=== PATIENT | female | born 1985 | race African-American/Black ===

== ENCOUNTER 2017-01-22 11:38 | Emergency (ER) | payer OTHER ==
[2017-01-22 12:02] LABS: BASOPHIL% 0.3 % (0-2.5); EOSINOPHIL# 0.1 X10e3 (0-0.7); EOSINOPHIL% 1.8 % (0.0-7.0); HEMATOCRIT 42.2 % (35.0-45.0); HEMOGLOBIN 13.6 gm/dL (12.0-16.0); LYMPHOCYTE# 2.3 X10e3 (1.0-3.5); LYMPHOCYTE% 52.3 % (17.0-45.0); MEAN CELL VOLUME 80.6 FL (83-96); MEAN CORPUSCULAR HEMOGLOBIN 25.9 PG (28-34); MEAN CORPUSCULAR HGB CONC 32.2 g/dL (30-36); MEAN PLATELET VOLUME 10.7 FL (6.5-11.5); MONOCYTE# 0.4 X10e3 (0-1.0); MONOCYTE% 8.3 % (3.0-12.0); NEUTROPHIL# 1.7 X10e3 (1.5-7.1); NEUTROPHIL% 37.3 % (40-75); PLATELET COUNT 137 X10e3 (140-420); RED BLOOD COUNT 5.24 X10e (3.90-5.30); RED CELL DISTRIBUTION WIDTH 14.2 % (11.0-15.5); WHITE BLOOD COUNT 4.5 X10e3 (4.0-10.5)
[2017-01-22 12:22] LABS: ALBUMIN SERUM 4.2 g/dL (3.5-5.0); BILIRUBIN, DIRECT 0.2 mg/dL (0.0-0.2); BILIRUBIN,INDIRECT 0.5 mg/dL (0.0-0.9); BILIRUBIN,TOTAL 0.7 mg/dL (0.2-2.0); BUN/CREATININE RATIO 22.5; CALCIUM SERUM 9.4 mg/dL (8.4-10.2); CREATININE SERUM 0.4 mg/dL (0.6-1.4); GLOM FILT RATE Estimated 159.8 mL/min (>60); POTASSIUM 3.2 mmol/L (3.5-5.1); PROTEIN TOTAL SERUM 7.2 g/dL (6.0-8.3)
[2017-01-22 12:26] LABS: DIFF IND YES
[2017-01-22 12:29] LABS: ANISOCYTOSIS SL; PLATELET ESTIMATE NORMAL (NORMAL)
[2017-01-22 12:56] LABS: URINE SOURCE CLEAN CATCH
[2017-01-22 13:03] LABS: URINE APPEARANCE CLEAR; URINE BILIRUBIN NEG (NEG); URINE BLOOD NEG (NEG); URINE COLOR YELLOW; URINE GLUCOSE NEG (NEG); URINE KETONE TRACE (NEG); URINE LEUKOCYTE ESTERASE TRACE (NEG); URINE NITRATE NEG (NEG); URINE PH 6.5 (5-8); URINE PROTEIN NEG (NEG); URINE SPECIFIC GRAVITY 1.009 (1.003-1.035)
[2017-01-22 13:05] LABS: CULTURE INDICATED? NO; U HYALINE CASTS AUWI 0-2 /[LPF]; URBCS1 AUWI 0-2 /[HPF] (0-2); URINE BACTERIA AUWI NEG (NEGATIVE); URINE SQUAMOUS EPITHELIAL CELL OCC /[HPF]; UWBCS1 AUWI 0-2 (0-5)
== END 2017-01-22 13:42 | disposition home or self-care (01) ==
LOC: CED 11:38
PROVIDERS: Emergency Medicine
DX: K29.70 Gastritis, unspecified, without bleeding (principal); B96.81 Helicobacter pylori [H. pylori] as the cause of diseases classified elsewhere
CPT/HCPCS: 36415; 80048; 80076; 81003; 83690; 84703; 85025; 86677; 96361; 96374; 96375; 99284; J2405

== ENCOUNTER 2017-01-30 19:18 | Emergency (ER) | payer OTHER ==
[2017-01-30 18:23] LABS: URINE SOURCE CLEAN CATCH
[2017-01-30 18:27] LABS: URINE APPEARANCE CLEAR; URINE BILIRUBIN NEG (NEG); URINE BLOOD NEG (NEG); URINE COLOR YELLOW; URINE GLUCOSE NEG (NEG); URINE KETONE NEG (NEG); URINE LEUKOCYTE ESTERASE NEG (NEG); URINE NITRATE NEG (NEG); URINE PROTEIN NEG (NEG); URINE SPECIFIC GRAVITY 1.016 (1.003-1.035); URINE UROBILINOGEN 0.2 MG/DL (NEG)
[2017-01-30 18:42] LABS: CULTURE INDICATED? NO
== END 2017-01-30 19:42 | disposition left against medical advice (07) ==
LOC: CED 19:18
DX: Z53.21 Procedure and treatment not carried out due to patient leaving prior to being seen by health care provider (principal)
CPT/HCPCS: 81003

== ENCOUNTER 2017-01-30 23:59 | Emergency (ER) | payer OTHER ==
--- NOTE | ~2017-01-30 | CR181 ---
[facility] A Service of [facility] RADIOLOGY TEXT RESULTS PATIENT: JULIO CESAR BARBER LOCATION: [facility] : [birth year] UNIT #: [id number] AGE: [address]: Jian Garber MD SEX: F ORDER DR: [id number] [facility] [address] [place], [place] [address] [id number] E MR#: [id number] Acc #: [id number] NAME: JULIO CESAR BARBER : 1985 SEX: F STUDY DATE/TIME: 01/31/2017 0:47 UNIT: [facility] ROOM: STUDY DESCRIPTION: CR Lumbar Spine 2 or 3 Views Attending Physician: Jian Garber M.D. Ordering Physician: Jian Garber M.D. Primary Care Physician: [facility] REPORT This report is preliminary unless electronic signature is present EXAM Lumbar spine 01/31/2017 HISTORY Chronic low back pain for several months. No specific injury. COMPARISON None. FINDINGS 3 views of the lumbar spine demonstrate no acute fracture or subluxation. Vertebral body heights and alignment are normal. Disc space and facets are normal. Sacrum and SI joints intact. IMPRESSION Unremarkable lumbar spine. Dictated by... Francois Faulkner M.D. THIS IS AN ELECTRONICALLY VERIFIED REPORT Francois Faulkner M.D. at 01/31/2017 11:28 PM ALLISON/abbie TD: 01/31/2017 13:49 JOB #: [id number] MEDICAL IMAGING REPORT Page 1 of 1 COPY
== END 2017-01-31 01:30 | disposition home or self-care (01) ==
LOC: CED 23:59
DX: M54.40 Lumbago with sciatica, unspecified side (principal)
CPT/HCPCS: 72100; 84703; 99283